=== PATIENT | female | born 1950 | race Caucasian/White ===

== ENCOUNTER 2017-04-24 09:51 | Inpatient (IN) ==
[2017-04-24] MEDS ORDERED: IOPAMIDOL 100 ML BOTTLE IV ONE (09:52)
[2017-04-24] MEDS ORDERED: methylPREDNISolone SOD SUCC 125 MG/2 ML VIAL ONE (09:55)
[2017-04-24] MEDS ORDERED: PROPOFOL 1,000 MG in PREMIX 1 BAG IV SCH (10:15)
[2017-04-24] MEDS ORDERED: ALBUTEROL SULFATE 5 MG/ML NEB SOLUTION BOTTLE NEB ONE ×2 (10:16→10:24)
[2017-04-24] MEDS ORDERED: LORazepam 2 MG/ML VIAL IV ONE ×2 (10:17→12:48)
[2017-04-24] MEDS ORDERED: LORazepam 2 MG/ML VIAL ONE (10:22)
[2017-04-24] MEDS ORDERED: IPRATROPIUM/ALBUTEROL 3 ML AMPUL.NEB NEB ONE (10:24)
[2017-04-24] MEDS ORDERED: methylPREDNISolone SOD SUCC 125 MG/2 ML VIAL IV ONE (10:24)
--- NOTE | 2017-04-24 10:25 | XRay Report ---
HISTORY: Reason for Exam:SOB and hypoxia FINDINGS: There are moderate generalized alveolar opacities in both lungs with the greatest consolidation in the lower lobes. Small bilateral pleural effusions are present. The heart is partially obscured by the consolidated lung parenchyma. These findings have become significantly worse since 03/05/17. IMPRESSION: Widespread bilateral pulmonary infiltrates which could be due to pneumonia or pulmonary edema Interpreted and Authenticated by: Kaleb Paz 04/24/17
[2017-04-24] MEDS ORDERED: cefTRIAXone 1 GM in DEXTROSE 5% IN WATER 50 ML IV ONE (10:32)
[2017-04-24] MEDS ORDERED: LEVOFLOXACIN 500 MG/100 ML BAG IV ONE (10:32)
[2017-04-24] MEDS ORDERED: FUROSEMIDE 40 MG/4 ML VIAL IV ONE ×3 (10:32→21:40)
--- NOTE | 2017-04-24 10:34 | Emergency Department Note ---
General Adult HPI - General Chief complaint: Shortness of Breath/Dyspnea Stated complaint: Shortness of Breath Time Seen by Provider: 04/24/17 10:24 Source: family Mode of arrival: ambulatory Limitations: no limitations - History of Present Illness HPI Narrative: 66-year-old female who walked in the door extremely short of breath.. Seen immediately by the ED physician. She did not saturations running in the 60s. Diaphoretic respiratory rates in the 40s. Given immediate duo nebs and Solu- Medrol. Anesthesia here the blood gas machine to be calibrated blood gases were drawn but they are not returned yet. We were ready to intubate when patient sats have come up to the 90s and her respiratory rate is slowing somewhat. Elected to try BiPAP hold off on intubation while observing.. She had just been seen by the automotive hardware engineer 3 days ago have ordered a workup on her including ABGs was to follow-up with him the test were performed. Having increasing shortness of breath according her using her nebulizer treatments at home she is off her diuretic. She is afebrile. ABGs have come back to pH of 7.33 the PCO2 is 40 and the PO2 is 78 the lactic is elevated 5.7 chest x-ray read with the radiologist reveals possible infiltrate on the right possible CHF. - Related Data Home Medications Medication Instructions Recorded Confirmed ipratropium-albuterol 0.5 mg-3 3 ml INHALATION 3-4XD 03/06/17 04/24/17 mg(2.5 mg base)/3 mL nebulization soln albuterol sulfate HFA 90 1 puff INHALATION .qdp PRN g 04/21/17 04/24/17 mcg/actuation aerosol inhaler Fluticasone/Vilanterol [Breo 1 inh INHALATION BID 04/24/17 04/24/17 Ellipta 200-25 Mcg INH] Previous Rx's Medication Instructions Recorded apixaban 5 mg tablet 5 mg PO BID #60 tab 03/06/17 nicotine 7 mg/24 hr daily 1 patch TRANSDERMA Q24H #14 patch 03/06/17 transdermal patch Allergies Allergy/AdvReac Type Severity Reaction Status Date / Time budesonide Allergy Intermediate Itching Verified 04/24/17 14:48 terbinafine [From Lamisil] AdvReac Mild Itching Verified 04/24/17 14:45 Review of Systems All systems ED: reviewed and negative except as stated. Constitutional: Denies: fever, chills Eyes: Denies: eye pain ENT ED: Denies: ear pain Cardiovascular: Reports: dyspnea on exertion. Denies: chest pain Respiratory: Reports: as per HPI, cough, wheezes Past Medical History - Past Medical History Medical history: Reports: COPD, DVT, other (itp) Surgical history ED: Reports: cataract, other (ankle) Family history: Reports: non-contributory - Social History smoking status: Current every day smoker Packyears: 40 Alcohol use: Reports: Occasionally Drug use: Reports: none Physical Exam - General Limitations: no limitations General appearance: alert - Head Head exam: atraumatic - Eye Eye exam: Present: normal appearance, PERRL - ENT ENT exam: normal exam, normal oropharynx - Neck Neck exam: Present: normal inspection, full ROM. Absent: trachea midline - Chest Chest inspection: Present: normal inspection, symmetric chest wall rise. Absent : tenderness - Respiratory Respiratory exam: Present: respiratory distress, wheezes, stridor - Cardiovascular Cardiovascular exam: Present: regular rate, normal rhythm, tachycardia - Abdominal Exam Abdominal exam: Present: soft. Absent: distention, tenderness - Extremities Exam Extremities exam: Present: normal inspection, full ROM - Back Exam Back exam: Present: normal inspection, full ROM - Expanded Neurological Exam Patient oriented to: Present: person, place, time Motor strength - LUE: 5/5 Motor strength - RUE: 5/5 Motor strength - LLE: 5/5 Motor strength - RLE: 5/5 Sensory exam upper extremity: Normal: light touch, temperature Sensory exam lower extremity: Normal: light touch DTR: 2+: patellar (L), patellar (R) Coma Scale Eye Opening: Spontaneous Coma Scale Motor Response: Obeys Commands Coma Scale Verbal Response: Oriented Coma Scale Total: 15 - Psychiatric Psychiatric exam: Present: anxious - Skin Skin exam: Present: warm, dry, intact Course Vital Signs Pulse Rate 121 H 04/24/17 09:55 Respiratory Rate 31 H 04/24/17 09:55 Blood Pressure 155/108 04/24/17 09:55 Pulse Oximetry (%) 68 L 04/24/17 09:55 Temperature 98.2 F 04/24/17 16:00 Pulse Rate 70 04/25/17 07:48 Respiratory Rate 13 04/25/17 07:48 Blood Pressure 161/95 04/25/17 06:03 Pulse Oximetry (%) 89 L 04/25/17 06:45 Medical Decision Making - Lab Data Result diagrams: 04/25/17 03:38 04/25/17 03:38 Lab Results 04/24/17 04/24/17 04/24/17 Range/Units 09:59 09:59 09:59 WBC 16.0 H (4.5-11.0) K/mcL RBC 4.27 (4.00-5.20) M/mcL Hgb 12.0 (12.0-15.0) g/dL Hct 37.4 (36.0-48.0) % POC Hct 39.0 (36.0-48.0) % MCV 87.6 (80.0-100.0) fL MCH 28.2 (26.0-34.0) pg MCHC 32.2 (31.0-36.0) g/dL RDW 15.9 H (11.5-14.5) % Plt Count 47 L* (140-440) K/mcL MPV 10.9 H (7.4-10.4) fL Total Counted 100 Seg Neutrophils % 76 (38-78) % Band Neutrophils % Not Reportable Lymphocytes % 17 (15-49) % Monocytes % (Manual) 3 (1-12) % Eosinophils % (Manual) 4 (0-7) % Platelet Estimate Decreased (NORMAL) RBC Morphology Normal (NORMAL) POC PT 18.4 H (11.9-14.5) sec POC INR 1.6 H (0.9-1.2) D-Dimer > 20.00 H (0.00-0.40) ug/ml VBG Lactic Acid (0.5-2.2) mmol/L POC Sodium 137 (133-145) mmol/L Sodium 139 (133-145) mmol/L POC Potassium 4.7 (3.3-5.1) mmol/L Potassium 5.4 H (3.3-5.1) mmol/L POC Chloride 104 (96-108) mmol/L Chloride 101 (96-108) mmol/L Carbon Dioxide 17 L (22-30) mmol/L POC Total CO2 21 L (22-30) mmol/L Anion Gap 21.0 H (8-16) POC BUN 10 (8-23) mg/dl BUN 10 (8-23) mg/dl Creatinine 0.9 (0.6-1.1) mg/dl POC Creatinine 0.8 (0.6-1.1) mg/dl GFR Calculation 67 Glucose 166 H (70-105) mg/dL POC Glucose 234 H (70-105) mg/dL Calcium 10.1 (8.6-10.4) mg/dl POC WB Ioniz Calcium 1.25 (1.16-1.32) mmol/L Total Bilirubin 1.0 (0.0-1.0) mg/dL AST 25 (0-37) U/l ALT 12 (0-40) U/l Alkaline Phosphatase 79 (39-117) U/L Total Creatine Kinase 45 (24-170) IU/L CK-MB (CK-2) 1.8 (0-2.9) ng/ml Troponin T (0-0.03) ng/ml NT-Pro-B Natriuret Pep (0-125) pg/ml Total Protein 7.5 (5.9-8.4) gm/dL Albumin 4.2 (3.2-5.2) gm/dL Globulin 3.3 (2.2-3.7) gm/dL Albumin/Globulin Ratio 1.3 (1.0-2.3) Procalcitonin (<0.10) ng/mL Mycoplasma pneumon IgM (NEGATIVE) 04/24/17 04/24/17 04/24/17 Range/Units 09:59 09:59 09:59 WBC (4.5-11.0) K/mcL RBC (4.00-5.20) M/mcL Hgb (12.0-15.0) g/dL Hct (36.0-48.0) % POC Hct (36.0-48.0) % MCV (80.0-100.0) fL MCH (26.0-34.0) pg MCHC (31.0-36.0) g/dL RDW (11.5-14.5) % Plt Count (140-440) K/mcL MPV (7.4-10.4) fL Total Counted Seg Neutrophils % (38-78) % Band Neutrophils % Lymphocytes % (15-49) % Monocytes % (Manual) (1-12) % Eosinophils % (Manual) (0-7) % Platelet Estimate (NORMAL) RBC Morphology (NORMAL) POC PT (11.9-14.5) sec POC INR (0.9-1.2) D-Dimer (0.00-0.40) ug/ml VBG Lactic Acid 5.2 H* (0.5-2.2) mmol/L POC Sodium (133-145) mmol/L Sodium (133-145) mmol/L POC Potassium (3.3-5.1) mmol/L Potassium (3.3-5.1) mmol/L POC Chloride (96-108) mmol/L Chloride (96-108) mmol/L Carbon Dioxide (22-30) mmol/L POC Total CO2 (22-30) mmol/L Anion Gap (8-16) POC BUN (8-23) mg/dl BUN (8-23) mg/dl Creatinine (0.6-1.1) mg/dl POC Creatinine (0.6-1.1) mg/dl GFR Calculation Glucose (70-105) mg/dL POC Glucose (70-105) mg/dL Calcium (8.6-10.4) mg/dl POC WB Ioniz Calcium (1.16-1.32) mmol/L Total Bilirubin (0.0-1.0) mg/dL AST (0-37) U/l ALT (0-40) U/l Alkaline Phosphatase (39-117) U/L Total Creatine Kinase (24-170) IU/L CK-MB (CK-2) (0-2.9) ng/ml Troponin T 0.07 H* (0-0.03) ng/ml NT-Pro-B Natriuret Pep 8490.0 H (0-125) pg/ml Total Protein (5.9-8.4) gm/dL Albumin (3.2-5.2) gm/dL Globulin (2.2-3.7) gm/dL Albumin/Globulin Ratio (1.0-2.3) Procalcitonin (<0.10) ng/mL Mycoplasma pneumon IgM (NEGATIVE) 04/24/17 04/24/17 Range/Units 09:59 09:59 WBC (4.5-11.0) K/mcL RBC (4.00-5.20) M/mcL Hgb (12.0-15.0) g/dL Hct (36.0-48.0) % POC Hct (36.0-48.0) % MCV (80.0-100.0) fL MCH (26.0-34.0) pg MCHC (31.0-36.0) g/dL RDW (11.5-14.5) % Plt Count (140-440) K/mcL MPV (7.4-10.4) fL Total Counted Seg Neutrophils % (38-78) % Band Neutrophils % Lymphocytes % (15-49) % Monocytes % (Manual) (1-12) % Eosinophils % (Manual) (0-7) % Platelet Estimate (NORMAL) RBC Morphology (NORMAL) POC PT (11.9-14.5) sec POC INR (0.9-1.2) D-Dimer (0.00-0.40) ug/ml VBG Lactic Acid (0.5-2.2) mmol/L POC Sodium (133-145) mmol/L Sodium (133-145) mmol/L POC Potassium (3.3-5.1) mmol/L Potassium (3.3-5.1) mmol/L POC Chloride (96-108) mmol/L Chloride (96-108) mmol/L Carbon Dioxide (22-30) mmol/L POC Total CO2 (22-30) mmol/L Anion Gap (8-16) POC BUN (8-23) mg/dl BUN (8-23) mg/dl Creatinine (0.6-1.1) mg/dl POC Creatinine (0.6-1.1) mg/dl GFR Calculation Glucose (70-105) mg/dL POC Glucose (70-105) mg/dL Calcium (8.6-10.4) mg/dl POC WB Ioniz Calcium (1.16-1.32) mmol/L Total Bilirubin (0.0-1.0) mg/dL AST (0-37) U/l ALT (0-40) U/l Alkaline Phosphatase (39-117) U/L Total Creatine Kinase (24-170) IU/L CK-MB (CK-2) (0-2.9) ng/ml Troponin T (0-0.03) ng/ml NT-Pro-B Natriuret Pep (0-125) pg/ml Total Protein (5.9-8.4) gm/dL Albumin (3.2-5.2) gm/dL Globulin (2.2-3.7) gm/dL Albumin/Globulin Ratio (1.0-2.3) Procalcitonin 0.05 (<0.10) ng/mL Mycoplasma pneumon IgM Negative (NEGATIVE) Disposition Clinical Impression: Pneumonia Disposition: Xfer As Inpt ([facility]) Condition: Fair
[2017-04-24] MEDS ORDERED: 0.9 % SODIUM CHLORIDE 1,000 ML IV ONE (10:40)
[2017-04-24 10:54] LABS: Mean Cell Volume 87.6 fL (80.0-100.0); Mean Corpuscular HGB Conc 32.2 g/dL (31.0-36.0); Mean Corpuscular Hemoglobin 28.2 pg (26.0-34.0); Platelet Count 47 K/mcL (140-440); RBC 4.27 M/mcL (4.00-5.20); Red Cell Distribution Width 15.9 % (11.5-14.5)
[2017-04-24 10:56] LABS: Eosinophils % (Manual) 4 % (0-7); Lymphocytes % 17 % (15-49); Monocytes % (Manual) 3 % (1-12); Platelet Estimate DECREASED (NORMAL); RBC Morphology NORMAL (NORMAL); Segmented Neutrophils % 76 % (38-78)
[2017-04-24 11:02] LABS: ALT/SGPT 12 U/l (0-40); Albumin 4.2 gm/dL (3.2-5.2); Albumin/Globulin Ratio 1.3 (1.0-2.3); Alkaline Phosphatase 79 U/L (39-117); Blood Urea Nitrogen 10 mg/dl (8-23); Creatine Kinase 45 IU/L (24-170); Creatine Kinase MB 1.8 ng/ml (0-2.9)
[2017-04-24 11:17] LABS: D-Dimer > 20.00 ug/ml (0.00-0.40)
--- NOTE | 2017-04-24 12:16 | Cat Scan Report ---
CLINICAL INFORMATION: Reason for Exam:sob elevated d dimer COMPARISON: None TECHNIQUE: Axial images obtained through the chest. intravenous contrast administration was administered, and scanning was performed during pulmonary arterial phase. Sagittally and coronally reformatted images were obtained. MIP reformatted images. FINDINGS: The pulmonary arteries are normal with no intraluminal filling defects. Moderate size bilateral layering pleural effusions are present. There is moderate consolidation in the basilar segments of both lower lobes. There is milder consolidation medially in the right middle lobe and inferiorly in the lingula. There is significant thickening of the intralobular septa, most apparent in the upper lobes. There is a mild mosaic pattern with subtle areas of groundglass opacification throughout both lungs. Patient has multiple indeterminate lymph nodes in the mediastinum. The measure up to 1.8 cm. No abnormally enlarged hilar lymph nodes are present. There is no evidence of a pulmonary mass. The heart is mildly enlarged with left ventricular dilatation. A small pericardial effusion is present. There are a few calcified plaques in the right main and left anterior descending coronary artery. The aorta is normal in caliber with only minimal plaque formation. Impression: No evidence of pulmonary emboli. Congestive heart failure Superimposed atelectasis or pneumonia in both lower lobes Nonspecific mediastinal adenopathy Bilateral pleural effusions and small pericardial effusion Dr. Atkins was called with results IMPRESSION: Interpreted and Authenticated by: Kaleb Paz 04/24/17
[2017-04-24] MEDS ORDERED: VANCOMYCIN 1,500 MG in 0.9 % SODIUM CHLORIDE 500 ML IV ONE (12:25)
[2017-04-24] MEDS ORDERED: PIPERACILLIN SODIUM/TAZOBACTAM 3.375 GM in DEXTROSE 5% IN WATER 50 ML IV SCH (12:30)
[2017-04-24] MEDS ORDERED: LEVALBUTEROL 0.63 MG/3 ML AMPUL.NEB NEB PRN (13:51)
[2017-04-24] MEDS ORDERED: ACETAMINOPHEN 1,000 MG/100 ML BOTTLE IV PRN (13:51)
[2017-04-24] MEDS ORDERED: ACETAMINOPHEN 325 MG TABLET PO PRN (13:51)
[2017-04-24] MEDS ORDERED: ONDANSETRON 4 MG/2 ML VIAL IV PRN (13:51)
[2017-04-24] MEDS ORDERED: POTASSIUM CHLORIDE 40 MEQ in DEXTROSE 5% IN WATER 500 ML IV PRN (13:51)
[2017-04-24] MEDS ORDERED: NICOTINE 14 MG PATCH TD SCH (13:51)
[2017-04-24] MEDS ORDERED: VANCOMYCIN PER PHARMACY IV SCH (13:51)
[2017-04-24] MEDS ORDERED: POTASSIUM CHLORIDE 20 MEQ PACKET PO PRN (13:51)
[2017-04-24] MEDS ORDERED: MAGNESIUM SULFATE 2 GM/50 ML BAG IV PRN (13:51)
[2017-04-24] MEDS: PIPERACILLIN SODIUM/TAZOBACTAM 3.375 GM in DEXTROSE 5% IN WATER 50 ML IV SCH ×3 (14:40→23:53)
--- NOTE | 2017-04-24 14:57 | History and Physical Report ---
DATE OF ADMISSION: 04/24/2017 REASON FOR ADMISSION: Worsening shortness of breath, weakness, and confusion. HISTORY OF CHIEF COMPLAINT: The patient is a 66-year-old with recent hospitalization at [facility] with extensive DVT and PE and subsequently underwent interventional radiology guided thrombectomy. The patient was started on anticoagulation on apixaban; however, over the last few days, the patient has gotten progressively short of breath. She was evaluated 4 days ago at Pulmonology, Dr. Salvador's office; however, ever since has continued to deteriorate. This morning she could barely walk or function and was gasping for air. She, however, did not have associated fever or productive sputum. She does endorse to weight gain. Initial workup in the ER was significant for hypoxia with sats in 60s. She was subsequently started on 100% oxygen and subsequently on BiPAP. Initial chest imaging revealed pulmonary edema along with bilateral infiltrates and elevated lactate of 5. The patient received first dose of antibiotics along with antibiotics, cultures were drawn. Initial white count was 15,000. The patient responded well to diuretics with over 2000 mL negative and noticed significant relief in her dyspnea on BiPAP. Hospitalist Service was consulted for admission. At the time of examination, the patient is fairly short of breath. She is accompanied with her . She was able to provide some of the history. She denies changes in medications, excessive salt diet, or NSAID intake. She denies sick contacts. She is up to date on vaccines. 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 She otherwise denies diarrhea, dysuria, joint pain, rash, headache, or photophobia. REVIEW OF SYSTEMS: Ten-point review of system was performed and negative except the ones discussed above. PAST MEDICAL HISTORY: 1. History of PE. 2. COPD. 3. Obstructive sleep apnea. 4. Anticoagulation for DVT. 5. Tobacco dependence. 6. ITP ALLERGIES: KNOWN TO BUDESONIDE. CURRENT MEDICATIONS: 1. Nicotine 21. 2. DuoNeb q.4h. 3. Fluticasone inhaled daily. 4. Apixaban 5 mg b.i.d. 5. Albuterol inhaled as needed. SOCIAL HISTORY: The patient lives with her . She smokes daily, carries over a [id number] history of smoking, no history of alcoholism. FULL CODE STATUS. FAMILY HISTORY: Noncontributory to presenting symptoms. PHYSICAL EXAMINATION: GENERAL: The patient is fairly obese with a BMI of over 30. VITAL SIGNS: Blood pressure 150/69, respiratory rate improved from 37 to 23 on BiPAP, sats improved from 60 to 94, 100% FIO2. Heart rate 98, and temperature 97.6. HEENT: Pupils symmetric. Oral cavity is dry. No ear or nose discharge. Head is normocephalic and atraumatic. NECK: No lymphadenopathy. HEART: S1 and S2 heard. Tachycardia. ESM grade 1. CHEST: Bilateral late inspiratory crackle expiratory rhonchi and diminished breath sounds at bases. ABDOMEN: Soft and nontender. LOWER EXTREMITIES: No cyanosis or clubbing. No lymphedema noted but no joint swelling or erythema. SKIN: No suspicious lesions. PSYCHIATRIC: Anxious, currently on BiPAP, labored but cooperative. NEURO: Nonfocal, moving all four extremities. LABS AND IMAGING: White count 16, hemoglobin 12, platelets 47, lactic acid 5.2. INR 1.6. Sodium 137, potassium 3.9, creatinine 0.9, BUN 21. Troponin 0.07. BNP 8490, procalcitonin pending. CT angiogram chest: No evidence of PE, pulmonary edema with congestive heart failure, superimposed pneumonia lower lobes, bilateral pleural effusion. Blood gas 7.33/ 40/78 on 100% FIO2. X-ray chest: Pulmonary edema. EKG: Sinus tachycardia. ASSESSMENT AND PLAN: A 66-year-old admitted with acute pulmonary edema and hypoxic respiratory failure. 1. Hypoxic respiratory failure. Start noninvasive ventilation. Large AA gradient. PaO2: FiO2 less than 100. Continue NIPPV and intubate if worsening. 2. Bibasilar infiltrates. Continue antibiotic coverage , high risk for nosocomial pneumonia given exposure to health care facility within 90 days. 3. Acute pulmonary edema. Start aggressive diuresis. Repeat echocardiogram, obtain prior records from [facility] for comparison. 4. History of DVT/ CTPAH. Continue anticoagulation. 5. History of COPD. Continue bronchodilators, steroids and oxygen. 6. History of tobacco dependence. Continued nicotine patch. 7. History of ITP. Monitor platelets. PLAN FOR TODAY: 1. Admit in ICU in light of EKWOK score 18 and significant hypoxic respiratory failure. 2. Noninvasive ventilation. 3. Serial blood gases and chest imaging. 4. Aggressive diuresis. 5. Echocardiogram. Total time spent on history and physical over 55 minutes, in addition 35 minutes critical exam spent on review of blood gases, chest imaging and management of noninvasive mechanical ventilation along with stabilization transferring patient to ICU. AA:juan francisco Job ID: [id number] Doc ID: [id number] Lei Lyons MD MTDD
[2017-04-24] MEDS: IPRATROPIUM/ALBUTEROL 3 ML AMPUL.NEB NEB SCH ×3 (15:38→23:03)
[2017-04-24] MEDS: 0.9 % SODIUM CHLORIDE 10 ML SYRINGE IV SCH ×2 (16:18→22:00)
[2017-04-24] MEDS: VANCOMYCIN 1,500 MG in 0.9 % SODIUM CHLORIDE 500 ML IV SCH (16:18)
[2017-04-24] MEDS ORDERED: hydrALAZINE 20 MG/ML VIAL IV PRN (16:24)
[2017-04-24] MEDS ORDERED: 0.9 % SODIUM CHLORIDE 10 ML SYRINGE IV PRN (17:51)
[2017-04-24] MEDS: methylPREDNISolone SOD SUCC 125 MG/2 ML VIAL IV SCH ×2 (18:26→23:53)
[2017-04-24] MEDS ORDERED: METOPROLOL SUCCINATE 25 MG TAB.XL.24H PO SCH (21:00)
[2017-04-24] MEDS ORDERED: BUDESONIDE 0.5 MG/2 ML AMPUL.NEB NEB SCH (21:00)
[2017-04-24] MEDS: SENNOSIDES/DOCUSATE SODIUM 1 TAB TABLET PO SCH (21:27)
[2017-04-24] MEDS: APIXABAN 5 MG TABLET PO SCH (21:28)
[2017-04-24] MEDS: DOCUSATE SODIUM 100 MG CAPSULE PO SCH (21:28)
[2017-04-24] MEDS: BECLOMETHASONE DIPROPIONATE 40MCG INHALER INH SCH (21:29)
[2017-04-24] MEDS: LORazepam 2 MG/ML VIAL IV PRN (21:30)
[2017-04-24] MEDS: FUROSEMIDE 40 MG/4 ML VIAL IV SCH (21:38)
[2017-04-24] MEDS: METOPROLOL TARTRATE 25 MG TABLET PO SCH (22:00)
[2017-04-25] MEDS: LORazepam 2 MG/ML VIAL IV PRN (01:30)
[2017-04-25] MEDS: IPRATROPIUM/ALBUTEROL 3 ML AMPUL.NEB NEB SCH ×5 (02:48→19:08)
[2017-04-25] MEDS ORDERED: HALOPERIDOL LACTATE 5 MG/ML VIAL IV PRN (04:00)
[2017-04-25] MEDS ORDERED: HALOPERIDOL LACTATE 5 MG/ML VIAL ONE (04:01)
[2017-04-25] MEDS ORDERED: MIDAZOLAM 5 MG/5 ML VIAL IV ONE (04:25)
[2017-04-25] MEDS ORDERED: PROPOFOL 200 MG/20 ML VIAL IV ONE (04:25)
[2017-04-25] MEDS ORDERED: SUCCINYLCHOLINE 20 MG/ML ML IV ONE (04:25)
[2017-04-25] MEDS ORDERED: fentaNYL 2,500 MCG in 0.9 % SODIUM CHLORIDE 200 ML IV SCH (05:05)
[2017-04-25] MEDS ORDERED: PROPOFOL 100 ML IV ONE (05:10)
[2017-04-25] MEDS ORDERED: fentaNYL 100 MCG/2 ML VIAL IV ONE (05:12)
[2017-04-25 05:22] LABS: Mean Cell Volume 86.7 fL (80.0-100.0); Mean Corpuscular HGB Conc 32.7 g/dL (31.0-36.0); Mean Corpuscular Hemoglobin 28.4 pg (26.0-34.0); Platelet Count 56 K/mcL (140-440); RBC 4.03 M/mcL (4.00-5.20); Red Cell Distribution Width 16.1 % (11.5-14.5)
--- NOTE | 2017-04-25 05:23 | Procedure Note ---
Procedures - Intubation Time out performed: Yes Sedative: Versed Mg given: 5 Paralytic: Succinylcholine ETT: ETCO2, BBS Mg given: 120 Laryngoscope: 3 Vocal Cord View: 1 ET tube size: 7 ET tube uncuffed: No Tube secured depth (cm): 22 Tube secured location: lips Tube placement confirmation: visualized tube passing through cords, equal breath sounds bilaterally, confirmation by capnometry # of Attempts: 1 Patient tolerated procedure: well, no complications Intubation complications: none Additional comments: Evaluated this pt 04/24 in ED on admit for resp failure, elected to try bipap. overnight resp decline and resp acidosis. called at 0421 for urgent intubation. on arrival, pt sedated for agitation and unable to give consent @97%. at bedside and confirms plan for ventilator support. pt positioned, induced with versed 5, propofol 100 and sux 120, bagged to 100% and intubated wo difficulty. pcxr shows ett placement acceptable.
[2017-04-25 05:35] LABS: ALT/SGPT 10 U/l (0-40); Albumin 4.1 gm/dL (3.2-5.2); Albumin/Globulin Ratio 1.3 (1.0-2.3); Alkaline Phosphatase 76 U/L (39-117); Bilirubin,Direct < 0.2 mg/dL (0.0-0.3); Blood Urea Nitrogen 18 mg/dl (8-23); Gamma Glutamyl Transpeptidase 27 U/L (5-36); Magnesium 1.9 mg/dL (1.6-2.5); Uric Acid 8.7 mg/dL (2.5-8.0)
[2017-04-25 06:22] LABS: Anisocytosis 1+ (NONE SEEN); Lymphocytes % 6 % (15-49); Platelet Estimate DECREASED (NORMAL); RBC Morphology ABNORM (NORMAL); Segmented Neutrophils % 94 % (38-78)
[2017-04-25] MEDS: PIPERACILLIN SODIUM/TAZOBACTAM 3.375 GM in DEXTROSE 5% IN WATER 50 ML IV SCH ×3 (06:40→18:25)
[2017-04-25] MEDS: 0.9 % SODIUM CHLORIDE 10 ML SYRINGE IV SCH ×2 (06:42→13:38)
[2017-04-25] MEDS: PROPOFOL 1,000 MG in PREMIX 1 BAG IV SCH ×3 (06:42→19:01)
[2017-04-25] MEDS ORDERED: HEPARIN/NS 500 ML IV SCH (07:00)
--- NOTE | 2017-04-25 07:10 | Internal Med Progress Note ---
Medical - PN: Subj Patient information: Note initiated : 04/25/17 at 7:05 am Service Date, if different from initiated Date: [] Patient: Graciela Solomon 66 y/o F admitted on 04/24/17 for Shortness of Breath. Chief Complaint: [] Interval history: 04/24- patient admitted with acute decompensated heart failure/hypoxia respiratory failure and nosocomial pneumonia. Critically ill. On noninvasive ventilation. Admitted to ICU. [place] score 18. High risk mortality. Recent history of extensive lower extremity DVT status post thrombectomy currently on anticoagulation. initial PO2 6800% FiO2. white count 16,000. Platelets 47. lactic acid 5.2 04/25-patient became recover remarkably distressed and short of breath feeling BiPAP. Intubated due to inability to protect airway and worsening hypoxic respiratory failure with degenerating blood gases. on mechanical ventilation 100 % FiO2 pressure control settings. Continue ICU sedation on propofol/fentanyl. Broad antibiotic coverage ongoing along with diuresis. white count at 10,000 with significant left shift. Platelet up at 56. venous lactate down to 1.2 from 5. over 4000 cc net negative diuresis. echocardiogram preliminary report high output cardiac failure with diastolic dysfunction. repeat chest x-ray bibasal infiltrate/effusion. Overall poor prognosis. If clinically worsening despite mechanical ventilation will be transferred to tertiary Center - Constitutional Vitals: Vital Signs Temp Pulse Resp BP Pulse Ox 98.2 F 83 16 161/95 86 L 04/24/17 16:00 04/25/17 06:29 04/25/17 05:29 04/25/17 06:03 04/25/17 06:29 Period Temp Pulse Resp BP Sys/[place] Pulse Ox Last 24 Hr 98.1 F-98.2 F 73-100 16-30 141-177/58-120 86-97 Intake and Output 04/24/17 04/25/17 04/25/17 21:59 05:59 13:59 Intake Total 880 / 880 50 / 50 Output Total 1959 770 / 770 35 / 35 Balance -1080 / -1080 -720 / -720 -35 / -35 Weight 192 lb 3.2 oz Intake & Output: Intake & Output 04/24/17 04/25/17 04/25/17 21:59 05:59 13:59 Intake Total 880 / 880 50 / 50 Output Total 1959 770 / 770 35 / 35 Balance -1080 / -1080 -720 / -720 -35 / -35 Weight 192 lb 3.2 oz Intake: IV 600 / 600 50 / 50 Zosyn 3.375 gm In 100 / 100 50 / 50 Dextrose 5% in Water 50 ml @ 100 mls/hr IV Q6H [facility] Rx#:[id number] Vancomycin 1,500 mg In 500 / 500 Sodium Chloride 0.9% 500 ml @ 333.3 mls/hr IV Q24H [facility] Rx#:[id number] Oral 280 / 280 Output: Urine Catheter Amount 1959 770 / 770 35 / 35 Other: Meal Nourishment/Supplement Percent of Meal Consumed 100% Feeding Ability Independent General appearance: cooperative, no acute distress Exam: sedated on propofol on mechanical ventilation Foleys draining clear urine No pallor Medical - PN: Obj Da - Labs CBC & Chem 7: 04/25/17 03:38 04/25/17 03:38 Labs: Abnormal Lab Results 04/25/17 04/25/17 03:38 03:38 Hgb 11.4 L Hct 34.9 L RDW 16.1 H Plt Count 56 L MPV 11.1 H Seg Neutrophils % 94 H Lymphocytes % 6 L RBC Morphology Abnorm A Anisocytosis 1+ A Glucose 150 H Uric Acid 8.7 H Phosphorus 4.9 H Lactate Dehydrogenase 529 H Meds: Medications Acetaminophen (Tylenol) 650 mg PO Q4-6HP PRN PRN Reason: PAIN/FEVER > 101 Albuterol/Ipratropium (Duoneb) 3 ml NEB Q4HRT [facility] Last Admin: 04/25/17 02:48 Dose: 3 ml Beclomethasone Dipropionate (Qvar 40) 1 puff INH BID [facility] Last Admin: 04/24/17 21:29 Dose: 1 puff Chlorhexidine Gluconate (Peridex) 15 ml SWABMOUTH BID [facility] Docusate Sodium (Colace) 100 mg PO BID [facility] Last Admin: 04/24/17 21:28 Dose: 100 mg Furosemide (Lasix) 40 mg IV BIDD [facility] Last Admin: 04/24/17 21:38 Dose: 40 mg Haloperidol Lactate (Haldol) 2 - 5 mg IV Q4HP PRN PRN Reason: ANXIETY/SEDATION Heparin Sodium (Porcine) (Heparin Flush) 2 ml IV Q12 [facility] Last Admin: 04/24/17 21:29 Dose: Not Given Hydralazine HCl (Apresoline) 10 mg IV Q6HP PRN PRN Reason: Hypertension Last Admin: 04/24/17 16:34 Dose: 10 mg Potassium Chloride 40 meq/ (Dextrose) 520 mls @ 130 mls/hr IV UD PRN PRN Reason: K+ = or < 3.5 Levofloxacin (Levaquin) 750 mg in 150 mls @ 100 mls/hr IV Q24H [place] Magnesium Sulfate (Magnesium Sulfate) 2 gm in 50 mls @ 50 mls/hr IV UD PRN PRN Reason: MG = or < 1.7 Acetaminophen (Ofirmev) 1,000 mg in 100 mls @ 200 mls/hr IV Q6HP PRN PRN Reason: PAIN/FEVER > 101 Piperacillin Sod/Tazobactam (Sod 3.375 gm/ Dextrose) 50 mls @ 100 mls/hr IV Q6H [place] Last Admin: 04/25/17 06:40 Dose: 100 mls/hr Vancomycin HCl 1,500 mg/ (Sodium Chloride) 500 mls @ 333.3 mls/hr IV Q24H [place] Last Infusion: 04/24/17 18:27 Dose: Infused Fentanyl 2,500 mcg/ Sodium (Chloride) 250 mls @ 2.5 mls/hr IV Q24H [place]; 25 MCG/ HR PRN Reason: Protocol Last Admin: 04/25/17 06:42 Dose: 200 mcg/hr, 20 mls/hr Propofol 1,000 mg/ Premix 100 mls @ 2.61 mls/hr IV .Q24H [place]; 5 MCG/KG/MIN PRN Reason: Protocol Last Admin: 04/25/17 06:42 Dose: 50 mcg/kg/min, 26.15 mls/hr Heparin Sodium/Sodium Chloride (Heparin/Ns) 500 mls @ 0 mls/hr IV .Q0M [place]; KVO PRN Reason: Protocol Iron Carb/Multivit/[place]/Folic Acid (Multivitamin W/Minerals) 1 tab PO DAILY [place] Levalbuterol HCl (Xopenex) 0.63 mg NEB Q4HP PRN PRN Reason: Shortness Of Breath Lorazepam (Ativan) 0.5 mg IV Q4-6HP PRN PRN Reason: ANXIETY/SEDATION Last Admin: 04/25/17 01:30 Dose: 0.5 mg Methylprednisolone Sodium Succinate (Solu-Medrol) 60 mg IV Q6 [facility] Last Admin: 04/24/17 23:53 Dose: 60 mg Metoprolol Tartrate (Lopressor) 25 mg PO BID [facility] Last Admin: 04/24/17 22:00 Dose: 25 mg Nicotine (Nicoderm) 7 mg TD Q24H [facility] Ondansetron HCl (Zofran) 4 mg IV Q4-6HP PRN PRN Reason: Nausea And Vomiting Potassium Chloride (Klor-Con) 40 meq PO DAILYP PRN PRN Reason: K+ < 3.5 Senna/Docusate Sodium (Senna Plus Tablet) 1 tab PO HS [facility] Last Admin: 04/24/17 21:27 Dose: 1 tab Sodium Chloride (Saline Flush) 10 ml IV Q8 [facility] Last Admin: 04/25/17 06:42 Dose: 10 ml Sodium Chloride (Saline Flush) 10 ml IV UD PRN PRN Reason: FLUSH Vancomycin HCl (Vancomycin Per Pharmacy) 1 order IV UD [facility] Medical - PN: A/P - Time Spent With Patient Total time spent is greater than 50% in coordination of care (as documented) at patient's floor/unit and/or counseling patient: Greater than 35 minutes (critical care time) (1) Acute respiratory failure with hypoxia Status: Acute Assessment and plan: * Acute hypoxic hypercapnic respiratory failure-secondary to pulmonary edema/ nosocomial pneumonia. Continue diuresis and antibiotics * Sepsis clinically improving-Downtrending venous lactate. Continue antibiotic coverage. Downtrending leukocytosis. use pressors if indicated * Mechanical ventilation managed per protocol with ICU sedation on propofol fentanyl * Nosocomial pneumonia continue antibiotic coverage * Thrombocytopenia-continue monitoring. Uptrending * history of COPD continue bronchodilators * severe pulmonary hypertension-as of last echo with pulmonary artery pressure 85. * history of DVT on anticoagulation plan * Serial blood gases/chest imaging * Mechanical ventilation per protocol * Diuresis * Antibiotic coverage * ICU care Current Visit: Yes Medical - PN: Qual - VTE Deep Vein Thrombosis/Pulmonary Embolism Present on Admission: No
--- NOTE | 2017-04-25 08:31 | XRay Report ---
HISTORY: Reason for Exam:PICC PLACEMENT FINDINGS: The PICC line has been placed to the left arm with the tip in the superior vena cava. There is no pneumothorax or widening of the mediastinum. The widespread bilateral alveolar opacities are still present along with cardiomegaly and bilateral pleural effusions. The infiltrates are unchanged from the prior exam done earlier the same date. IMPRESSION: Well-positioned PICC line Stable cardiomegaly with congestive heart failure and/or widespread pneumonia The ICU nurse was called with results Interpreted and Authenticated by: Kaleb Paz 04/25/17
--- NOTE | 2017-04-25 08:33 | XRay Report ---
HISTORY: Reason for Exam:Intubation FINDINGS: Endotracheal tube has been inserted. The tip is 3 cm above the beatriz. There is no pneumothorax. PICC line remains in the superior vena cava. There are moderately severe diffuse bilateral alveolar opacities with greatest consolidation in both lower lobes. The heart is moderately enlarged. There are small to moderate-sized bilateral pleural effusions. The infiltrates in the mid and upper lung cordero have become worse since chest today. IMPRESSION: Well-positioned support tubes. Worsening infiltrates in both lungs which could be a combination of pulmonary edema, pneumonia and ARDS Interpreted and Authenticated by: Kaleb Paz 04/25/17
--- NOTE | 2017-04-25 08:33 | XRay Report ---
HISTORY: Reason for Exam:OG tube placement FINDINGS: There is a nasogastric tube with the tip in the antrum of the stomach. The bowel gas pattern is normal. Densely consolidating infiltrates are present in both lung bases. IMPRESSION: Nasogastric tube in the antrum of the stomach Interpreted and Authenticated by: Kaleb Paz 04/25/17
[2017-04-25] MEDS: DOCUSATE SODIUM 100 MG CAPSULE PO SCH ×2 (08:34→21:33)
[2017-04-25] MEDS: METOPROLOL TARTRATE 25 MG TABLET PO SCH ×2 (08:51→21:34)
[2017-04-25] MEDS: APIXABAN 5 MG TABLET PO SCH ×2 (08:52→21:33)
[2017-04-25] MEDS ORDERED: LEVOFLOXACIN 750 MG/150 ML BAG IV SCH (09:00)
[2017-04-25] MEDS ORDERED: MULTIVIT,THER IRON,CA,FA & MIN 1 TABLET PO SCH (09:00)
[2017-04-25] MEDS: CHLORHEXIDINE GLUCONATE 1 ML ORAL.SOL SWABMOUTH SCH ×2 (09:03→21:34)
[2017-04-25] MEDS: methylPREDNISolone SOD SUCC 125 MG/2 ML VIAL IV SCH ×3 (09:04→18:25)
[2017-04-25] MEDS: FUROSEMIDE 40 MG/4 ML VIAL IV SCH ×2 (09:05→18:13)
[2017-04-25] MEDS ORDERED: NICOTINE 7 MG PATCH TD SCH (10:00)
[2017-04-25] MEDS ORDERED: HEPARIN/NS 500 ML IV ONE (12:38)
[2017-04-25 12:41] LABS: Strep Pneumoniae Antigen - UR NEGATIVE (NEGATIVE)
--- NOTE | 2017-04-25 13:26 | Procedure Note ---
Procedures - Arterial Line Consent obtained: written consent Time out performed: Yes Size (Gauge): 20 Technique used: guide wire technique Post-Procedure: dry sterile dressing placed, easily flushed, waveform correlation (double tegaderm secured) Patient tolerated procedure: well, no complications Complications: none Site: right, radial Additional comments: called by ICU staff for a line placement, resp failure, hypotension req pressors , currently off pressors, intubated sedated. attempt l rad wo success. r rad wo problem x agitation wo stim, prop given.
[2017-04-25] MEDS: BECLOMETHASONE DIPROPIONATE 40MCG INHALER INH SCH ×2 (16:50→21:34)
[2017-04-25] MEDS: VANCOMYCIN 1,500 MG in 0.9 % SODIUM CHLORIDE 500 ML IV SCH (16:51)
[2017-04-25 18:10] LABS: ALT/SGPT 7 U/l (0-40); Albumin 3.5 gm/dL (3.2-5.2); Albumin/Globulin Ratio 1.3 (1.0-2.3); Alkaline Phosphatase 60 U/L (39-117); Bilirubin,Direct < 0.2 mg/dL (0.0-0.3); Blood Urea Nitrogen 31 mg/dl (8-23); Gamma Glutamyl Transpeptidase 21 U/L (5-36); Magnesium 1.9 mg/dL (1.6-2.5); Uric Acid 9.5 mg/dL (2.5-8.0)
[2017-04-25] MEDS ORDERED: 0.9 % SODIUM CHLORIDE 500 ML IV ONE (19:17)
--- NOTE | 2017-04-25 20:04 | Transfer Summary ---
Transfer Discharge Sum: Prov Patient information: Note initiated : 04/25/17 at 7:55 pm Service Date, if different from initiated Date: [] Patient: Graciela Solomon 66 y/o F admitted on 04/24/17 for Shortness of Breath. Chief Complaint: [] Date of admission: 04/24/17 13:25 Discharge Date: 04/25/17 Primary care physician: Anthony Lenz Transfer Discharge Sum: Diag - Discharge Diagnosis (1) Acute respiratory failure with hypoxia Status: Acute Transfer Discharge Sum: Med - Medications Active and Home Medications: Home Medications apixaban 5 mg tablet 5 mg PO BID #60 tab 03/06/17 [Rx Confirmed 04/24/17] ipratropium-albuterol 0.5 mg-3 mg(2.5 mg base)/3 mL nebulization soln 3 ml INHALATION 3-4XD 03/06/17 [History Confirmed 04/24/17] nicotine 7 mg/24 hr daily transdermal patch 1 patch TRANSDERMA Q24H #14 patch [Rx Confirmed 04/24/17] albuterol sulfate HFA 90 mcg/actuation aerosol inhaler 1 puff INHALATION .qdp PRN g 04/21/17 [History Confirmed 04/24/17] Fluticasone/Vilanterol [Breo Ellipta 200-25 Mcg INH] 1 inh INHALATION BID [History Confirmed 04/24/17] Active Medications Acetaminophen (Tylenol) 650 mg PO Q4-6HP PRN PRN Reason: PAIN/FEVER > 101 Albuterol/Ipratropium (Duoneb) 3 ml NEB Q4HRT [facility] Last Admin: 04/25/17 19:08 Dose: 3 ml Beclomethasone Dipropionate (Qvar 40) 1 puff INH BID [facility] Last Admin: 04/25/17 16:50 Dose: Not Given Chlorhexidine Gluconate (Peridex) 15 ml SWABMOUTH BID [facility] Last Admin: 04/25/17 09:03 Dose: 15 ml Docusate Sodium (Colace) 100 mg PO BID [facility] Last Admin: 04/25/17 08:34 Dose: Not Given Furosemide (Lasix) 40 mg IV BIDD [facility] Last Admin: 04/25/17 18:13 Dose: Not Given Haloperidol Lactate (Haldol) 2 - 5 mg IV Q4HP PRN PRN Reason: ANXIETY/SEDATION Heparin Sodium (Porcine) (Heparin Flush) 2 ml IV Q12 [facility] Last Admin: 04/25/17 09:05 Dose: 2 ml Hydralazine HCl (Apresoline) 10 mg IV Q6HP PRN PRN Reason: Hypertension Last Admin: 04/24/17 16:34 Dose: 10 mg Potassium Chloride 40 meq/ (Dextrose) 520 mls @ 130 mls/hr IV UD PRN PRN Reason: K+ = or < 3.5 Levofloxacin (Levaquin) 750 mg in 150 mls @ 100 mls/hr IV Q24H [place] Last Infusion: 04/25/17 10:20 Dose: Infused Magnesium Sulfate (Magnesium Sulfate) 2 gm in 50 mls @ 50 mls/hr IV UD PRN PRN Reason: MG = or < 1.7 Acetaminophen (Ofirmev) 1,000 mg in 100 mls @ 200 mls/hr IV Q6HP PRN PRN Reason: PAIN/FEVER > 101 Piperacillin Sod/Tazobactam (Sod 3.375 gm/ Dextrose) 50 mls @ 100 mls/hr IV Q6H [place] Last Infusion: 04/25/17 19:10 Dose: Infused Vancomycin HCl 1,500 mg/ (Sodium Chloride) 500 mls @ 333.3 mls/hr IV Q24H [facility] Last Infusion: 04/25/17 18:51 Dose: Infused Fentanyl 2,500 mcg/ Sodium (Chloride) 250 mls @ 2.5 mls/hr IV Q24H [place]; 25 MCG/ HR PRN Reason: Protocol Last Titration: 04/25/17 13:30 Dose: Infused Propofol 1,000 mg/ Premix 100 mls @ 2.61 mls/hr IV .Q24H [place]; 5 MCG/KG/MIN PRN Reason: Protocol Last Admin: 04/25/17 19:01 Dose: 20 mcg/kg/min, 10.46 mls/hr Heparin Sodium/Sodium Chloride (Heparin/Ns) 500 mls @ 0 mls/hr IV .Q0M [place]; KVO PRN Reason: Protocol Sodium Chloride (Sodium Chloride 0.9%) 500 mls @ 0 mls/hr IV BOLUS ONE PRN Reason: Wide Open Stop: 04/25/17 19:18 Last Admin: 04/25/17 19:19 Dose: 999 mls/hr Iron Carb/Multivit/[place]/Folic Acid (Multivitamin W/Minerals) 1 tab PO DAILY [facility] Last Admin: 04/25/17 09:05 Dose: Not Given Levalbuterol HCl (Xopenex) 0.63 mg NEB Q4HP PRN PRN Reason: Shortness Of Breath Lorazepam (Ativan) 0.5 mg IV Q4-6HP PRN PRN Reason: ANXIETY/SEDATION Last Admin: 04/25/17 01:30 Dose: 0.5 mg Methylprednisolone Sodium Succinate (Solu-Medrol) 60 mg IV Q6 [facility] Last Admin: 04/25/17 18:25 Dose: 60 mg Metoprolol Tartrate (Lopressor) 25 mg PO BID [facility] Last Admin: 04/25/17 08:51 Dose: Not Given Nicotine (Nicoderm) 7 mg TD Q24H [facility] Last Admin: 04/25/17 08:36 Dose: Not Given Ondansetron HCl (Zofran) 4 mg IV Q4-6HP PRN PRN Reason: Nausea And Vomiting Potassium Chloride (Klor-Con) 40 meq PO DAILYP PRN PRN Reason: K+ < 3.5 Senna/Docusate Sodium (Senna Plus Tablet) 1 tab PO HS [facility] Last Admin: 04/24/17 21:27 Dose: 1 tab Sodium Chloride (Saline Flush) 10 ml IV Q8 [facility] Last Admin: 04/25/17 13:38 Dose: 10 ml Sodium Chloride (Saline Flush) 10 ml IV UD PRN PRN Reason: FLUSH Vancomycin HCl (Vancomycin Per Pharmacy) 1 order IV UD [facility] Transfer Discharge Sum: Hosp Hospital course: TRANSFER$ DIAGNOSIS * Acute hypoxic hypercapnic respiratory failure-secondary to pulmonary edema/ nosocomial pneumonia. Continue diuresis and antibiotics * Sepsis clinically improving-Downtrending venous lactate from 5.2-> 1.2. Continue antibiotic coverage. Downtrending leukocytosis 16->10. * Scute renal failure- creatinine up from 1.1-1.6. 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 Uptrending 47->56. Previously treated at [place] on Solu-Medrol. * history of COPD continue bronchodilators * Severe pulmonary hypertension-as of last echo with pulmonary artery pressure 85. 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 * history of LLE DVT on anticoagulation. BRIEF HOSPITAL COURSE Ms. Solomon is a 66 year old female admitted with severe shortness of breath with sats 60% or 100% FiO2 in ED 04/24- patient admitted with acute decompensated heart failure/hypoxic respiratory failure and bilateral chest infiltrates likely nosocomial pneumonia. Critically ill. On noninvasive ventilation. Admitted to ICU. [place] score 18. High risk mortality. Recent history of extensive lower extremity DVT status post left lower extremity some lysis/ thrombectomy currently on anticoagulation on Apixiban. initial PO2 68 on 100% FiO2. white count 16,000. Platelets 47. lactic acid 5.2. creatinine 1.1. BNP 8500. Echo pending. CT chest negative for PE 04/25-4 AM. patient became remarkably distressed and short of breath failing BiPAP. Intubated due to inability to protect airway and worsening hypoxic respiratory failure with deteriorating blood gases. Stated on mechanical ventilation 100% FiO2 pressure control settings due to inability to tolerate AC. Continue ICU sedation on propofol/fentanyl. Broad antibiotic coverage ongoing along with diuresis. white count down 10,000 with significant left shift. Platelet up at 56. venous lactate down to 1.2 from 5. over 4000 cc net negative diuresis. Echocardiogram preliminary report high output cardiac failure with diastolic dysfunction. Repeat chest x-ray bibasal infiltrate/ effusion. Overall poor prognosis. 18 :00- Creatinine 1.6. urine output down to 20 cc in the last 6 hours. Crystalloid challenge. Map at goal. Case discussed with family including . Patient critically ill and high risk mortality and will require ertiary Center transfer for further evaluation by marine drafter/health program specialist. Case of similar discuss with Dr. Arriaza [facility] health program specialist along with marine drafter Dr. Stringer. health program specialist recommended 500 cc of 5% albumin stat. highly appreciate Dr. Arriaza's help in accepting and further management of this critically ill patient. patient will be transferred to [facility] via air ambulance. family aware of poor prognosis and agreeable to plan /transfer to tertiary Center - Time Spent with Patient Total time spent providing and/or coordinating transfer services: Greater than 30 minutes Transfer Discharge Sum: Exam - Constitutional Vitals: Vital Signs Temp Pulse Resp Resp Resp BP Pulse Ox 04/25/17 19:29 91 04/25/17 19:10 16 13 04/25/17 19:08 63 13 04/25/17 18:50 63 13 94 04/25/17 18:00 89 L 04/25/17 17:03 13 04/25/17 16:18 97.7 F 61 13 96 04/25/17 15:33 59 L 13 96 04/25/17 15:07 59 L 13 13 04/25/17 13:40 60 13 107/49 90 04/25/17 13:32 16 13 04/25/17 13:01 63 13 105/46 95 04/25/17 12:01 98.3 F 62 13 102/41 93 04/25/17 12:00 13 96 04/25/17 11:16 62 13 13 04/25/17 11:01 64 13 104/45 96 04/25/17 10:26 65 96 04/25/17 10:01 64 13 109/43 95 04/25/17 09:21 13 04/25/17 09:16 65 105/47 96 04/25/17 09:11 65 104/45 96 04/25/17 09:06 65 105/48 96 04/25/17 09:01 65 13 109/46 96 04/25/17 08:56 65 105/47 96 04/25/17 08:51 66 104/48 97 04/25/17 08:46 65 106/47 97 04/25/17 08:41 65 105/48 97 04/25/17 08:36 65 102/47 97 04/25/17 08:31 65 105/45 96 04/25/17 08:26 65 102/47 96 04/25/17 08:21 65 102/45 96 04/25/17 08:16 65 106/45 96 04/25/17 08:11 65 102/46 96 04/25/17 08:06 65 104/47 96 04/25/17 08:01 66 16 107/51 96 04/25/17 07:56 66 98/45 96 04/25/17 07:51 67 92/45 95 04/25/17 07:48 70 13 04/25/17 07:46 67 97/44 95 04/25/17 07:40 67 100/44 94 04/25/17 07:35 66 98/45 95 04/25/17 07:30 31 L 97/48 79 L 04/25/17 07:25 68 94/45 96 04/25/17 07:20 68 88/44 95 04/25/17 07:15 69 86/41 95 04/25/17 07:11 69 79/40 95 04/25/17 07:09 70 82/38 95 04/25/17 07:06 69 78/40 95 04/25/17 07:03 70 79/38 95 04/25/17 07:01 98.0 F 69 16 71/35 94 04/25/17 06:47 69 177/114 95 04/25/17 06:45 16 04/25/17 06:29 83 86 L 04/25/17 06:03 161/95 90 04/25/17 06:00 89 L 04/25/17 05:29 16 04/25/17 05:01 28 H 153/63 95 04/25/17 04:01 29 H 155/120 96 04/25/17 03:02 30 H 153/58 95 04/25/17 02:46 83 19 91 04/25/17 02:01 22 166/68 96 04/25/17 01:08 24 H 156/59 92 04/25/17 01:03 73 24 H 90 04/25/17 00:02 21 154/76 91 04/25/17 00:00 21 91 04/24/17 23:11 73 21 94 04/24/17 23:04 87 23 H 04/24/17 23:01 29 H 146/60 95 04/24/17 22:01 23 H 142/76 94 04/24/17 21:37 87 25 H 94 04/24/17 21:02 27 H 141/85 94 04/24/17 21:00 92 H 30 H 04/24/17 20:01 28 H 162/67 93 Pulse Ox Pulse Ox 04/25/17 19:29 04/25/17 19:10 89 L 92 04/25/17 19:08 04/25/17 18:50 04/25/17 18:00 04/25/17 17:03 95 04/25/17 16:18 04/25/17 15:33 04/25/17 15:07 96 04/25/17 13:40 04/25/17 13:32 89 L 96 04/25/17 13:01 04/25/17 12:01 04/25/17 12:00 04/25/17 11:16 95 04/25/17 11:01 04/25/17 10:26 04/25/17 10:01 04/25/17 09:21 96 04/25/17 09:16 04/25/17 09:11 04/25/17 09:06 04/25/17 09:01 04/25/17 08:56 04/25/17 08:51 04/25/17 08:46 04/25/17 08:41 04/25/17 08:36 04/25/17 08:31 04/25/17 08:26 04/25/17 08:21 04/25/17 08:16 04/25/17 08:11 04/25/17 08:06 04/25/17 08:01 04/25/17 07:56 04/25/17 07:51 04/25/17 07:48 04/25/17 07:46 04/25/17 07:40 04/25/17 07:35 04/25/17 07:30 04/25/17 07:25 04/25/17 07:20 04/25/17 07:15 04/25/17 07:11 04/25/17 07:09 04/25/17 07:06 04/25/17 07:03 04/25/17 07:01 04/25/17 06:47 04/25/17 06:45 89 L 04/25/17 06:29 04/25/17 06:03 04/25/17 06:00 04/25/17 05:29 91 04/25/17 05:01 04/25/17 04:01 04/25/17 03:02 04/25/17 02:46 04/25/17 02:01 04/25/17 01:08 04/25/17 01:03 04/25/17 00:02 04/25/17 00:00 04/24/17 23:11 04/24/17 23:04 04/24/17 23:01 04/24/17 22:01 04/24/17 21:37 04/24/17 21:02 04/24/17 21:00 04/24/17 20:01 Intake and Output 04/25/17 04/25/17 04/25/17 05:59 13:59 21:59 Intake Total 50 / 50 574.4 / 574.4 650 / 650 Output Total 770 / 770 240 / 240 235 / 235 Balance -720 / -720 334.4 / 334.4 415 / 415 Intake: IV 50 / 50 574.4 / 574.4 650 / 650 Zosyn 3.375 gm In 50 / 50 100 / 100 50 / 50 Dextrose 5% in Water 50 ml @ 100 mls/hr IV Q6H [facility] Rx#:[id number] Diprivan 1,000 mg In 100 / 100 Premix 1 Bag @ 5 MCG/KG/ MIN 2.61 mls/hr IV .Q24H [facility] Rx#:[id number] Vancomycin 1,500 mg In 500 / 500 Sodium Chloride 0.9% 500 ml @ 333.3 mls/hr IV Q24H [facility] Rx#:[id number] fentaNYL 2,500 MCG In 224.4 / 224.4 Sodium Chloride 0.9% 200 ml @ 25 MCG/HR 2.5 mls/hr IV Q24H [facility] Rx#: [id number] Output: Urine Catheter Amount 770 / 770 240 / 240 35 / 35 Other 200 / 200 Other: Weight 192 lb 3.2 oz Patient Weight 04/26/17 05:59 Weight 192 lb 3.2 oz Transfer Discharge Sum: A/P - Problem Maintenance (1) Acute respiratory failure with hypoxia Status: Acute - Plan Functional capacity at transfer: bed bound (mechanical ventilation) Overall status at transfer: patient is not back to baseline Disposition: Xfer [facility] Quality Measure Queries - VTE Deep Vein Thrombosis/Pulmonary Embolism Present on Admission: No
[2017-04-25] MEDS ORDERED: SODIUM CHLORIDE 0.9% IV SCH (20:15)
[2017-04-25] MEDS ORDERED: ALBUMIN HUMAN IV SCH (20:15)
[2017-04-25] MEDS ORDERED: ALBUMIN HUMAN 100 ML IV ONE (20:17)
[2017-04-25] MEDS: SENNOSIDES/DOCUSATE SODIUM 1 TAB TABLET PO SCH (21:34)
--- NOTE | 2017-04-27 07:17 | Echocardiogram Report ---
ECHOCARDIOGRAM: 2-D and M-mode echocardiography with cardiac Doppler and color flow imaging were performed with a [employer] MX. Indication is pulmonary edema/cor pulmonale. The diagnostic M-mode tracing of the LV could not be obtained. Overall size of the RA, RV, LV, and aortic root appeared normal. LV wall thickness appeared borderline to mildly increased. Systolic performance appeared normal. Estimated ejection fraction is 60%. The LA appeared borderline to mildly enlarged. The aortic valve appeared trileaflet. Light leaflet calcification was present. Valve opening appeared adequate, though mean this aortic outflow systolic gradient calculated at 18 mmHg and valve area index calculated at 0.8 cm2 per meter square, mild aortic stenosis. Alternatively, these values could represent high output state. Aortic regurgitation, probably moderate (2+), was noted. The mitral and tricuspid valves appeared unremarkable. Mitral annular calcification was present. Doppler interrogation of LV inflow disclosed a poor signal. Mitral regurgitation, probably mild to moderate (1-2+), was noted. Color flow imaging disclosed the regurgitant jet to be directed centrally. The pulmonic valve was not well visualized. Pulmonary artery acceleration time appeared normal. There was no evidence for pulmonic stenosis. Pulmonic regurgitation, probably mild (1+), was demonstrated. There was no evidence for tricuspid regurgitation. No intracardiac shunting was appreciated. A small posterior echo free space indicating pericardial effusion was present. A small space adjacent to the RA free wall was appreciated as well. The IVC was dilated and did not vary with the respiratory cycle indicating raised CVP. Sinus rhythm, rate 98, was present. CONCLUSION:Aortic regurgitation, probably moderate (2+). Borderline to mild concentric LVH with normal systolic performance. Mitral annular calcification with mitral regurgitation, probably mild to moderate (1-2+), and borderline LA enlargement. Small pericardial effusion. Raised CVP. Possible output state/clinical correlation suggested. Findings were discussed to the nursing unit, 8:25 p.m., 04/24/2017. (See accompanying M-mode and Doppler reports for quantitation.) ECHOCARDIOGRAPHY M-MODE CALCULATIONS: HT: 5'5 WT: 206 BSA: 2.0 m2 NORMALS AORTA: AORTIC ROOT 2.4 2.0-3.7 cm LEFT ATRIUM 3.8 1.9-4.0 cm MITRAL VALVE: EXCURSION 1.5 1.9-2.7 cm EPSS 0.6 <0.5 cm LT VENTRICLE: LVID (ED) -- 3.5-5.7 cm LVID (ES) -- SEPTAL THICKNESS -- 0.6-1.1 cm SEPTAL EXCURSION -- 0.3-0.8 cm LVPW THICKNESS -- 0.6-1.1 cm LVPW EXCURSION -- 0.9-1.4 cm MINOR AXIS FS -- 25%-40% RT VENTRICLE: RVID (ED) -- 0.9-2.6 cm(up to 3cm if LLD) QUALITATIVE DOPPLER FLOW STUDIES MITRAL VALVE MR, probably mild to moderate (1-2+) AORTIC VALVE AR, probably moderate (2+) TRICUSPID VALVE -- PULMONIC VALVE MI, probably mild (1+) QUANTITATIVE DOPPLER FLOW STUDIES SAMPLE SITES VELOCITIES PEAK PRESSURE VALVE AREA and/or VALVE WINDOW (PEAK,M/SEC) DROP (GRADIENT) PRESSURE HALF-TIME MV (Diastole) 2.5 2.3 -- -- MV (Systole) 6.0 -- -- AO (Diastole) 5.0 -- -- AO (Systole) 2.8 32 mmHg; 18 mmHg (mean); 1.6 cm2 ; 0.8 cm2/m2 TV (Systole) -- -- -- PV (Systole) 1.0 -- -- PV (Diastole) 1.8 ZAHIDA:juan francisco Job ID: [id number] Doc ID: [id number] Leobardo Carrasquillo MD
[2017-05-01 08:23] LABS: Legionella pneumophilia Ag, Ur NOT DETECTED
== END 2017-04-25 20:50 | disposition short-term general hospital (02) | DRG 208 ==
LOC: ED 09:51 → ICU 13:25
PROVIDERS: ADMIT Internal Medicine; ATTEND Internal Medicine